=== PATIENT | female | born 1940 | race Caucasian/White ===

== ENCOUNTER 2016-03-30 17:10 | Inpatient (IN) | payer OTHER, BC ==
[~2016-03-30] VITALS: Ht 152.4 cm; Wt 110.4 kg
[~2016-03-30 17:10] MED LIST: ALBUTEROL SULF8.5 GM INH; HYDROCHLOROTHIA25 M1 PO; KEFLEX500 MG PO; KLOR-CON20 ME1 PO; LEVOXYL100 MCG PO; MULTI VITAMIN1 EACH PO; PEPCID20 MG PO; PREMARIN0.3 MG PO; ZYRTEC10 M2 PO
[2016-03-30 17:13] VITALS: BP 145/78
[2016-03-30 17:33] LABS: URINE BILIRUBIN NEGATIVE (Negative); URINE BLOOD TRACE (Negative); URINE COLOR YELLOW; URINE GLUCOSE-RANDOM* NEGATIVE (Negative); URINE KETONES 3+ (Negative); URINE LEUKOCYTES-REFLEX NEGATIVE (Negative); URINE PROTEIN (DIPSTICK) 2+ (Negative); URINE SPECIFIC GRAVITY 1.025 (1.003-1.035); URINE UROBILINOGEN 0.2 E.U./dl (0.2-1.0)
[2016-03-30] MEDS ORDERED: MAGOX 400400 MG PO (17:41)
[2016-03-30] MEDS ORDERED: NERVE MED (17:41)
[2016-03-30 17:43] LABS: CASTS None Seen /LPF (None Seen); CRYSTALS None Seen /LPF (None Seen); SQUAMOUS None Seen /LPF (0-3); URINE RBC 0-2 Rare /HPF (0-2); URINE WBC-REFLEX 0-5 Rare /HPF (0-5)
[2016-03-30 17:51] LABS: HEMATOCRIT 42.4 % (37.0-47.0); HEMOGLOBIN 14.5 gm/dL (12.0-15.0); MCH 30.2 pg (26.0-34.0); MCHC 34.2 % (28.0-37.0); MCV 88.1 fL (80.0-100.0); PLATELET COUNT 281 thou/uL (150-400); RBC 4.81 mil/uL (4.20-5.00); RDW 13.5 % (10.5-14.5); WBC 21.8 thou/uL (4.0-11.0)
[2016-03-30 17:54] LABS: MANUAL DIFF YES
[2016-03-30 17:58] LABS: POTASSIUM 3.4 mmol/L (3.5-5.1)
[2016-03-30 18:07] LABS: ABSOLUTE NEUTROPHILS 17.9 thou/uL (1.4-8.2); TOTAL CELL COUNT 100
[2016-03-30 18:24] LABS: ALBUMIN 3.8 g/dL (3.4-5.0); DIRECT BILIRUBIN 0.3 mg/dL (<0.1-0.3); TOTAL BILIRUBIN 1.5 mg/dL (<0.1-1.0); TOTAL PROTEIN 7.3 g/dL (6.4-8.2)
[2016-03-30 20:24] VITALS: BP 112/53; BP 116/59
[2016-03-30 21:30] VITALS: BP 130/58
[2016-03-30 23:25] VITALS: BP 103/56
[2016-03-31 04:55] VITALS: BP 105/57
[2016-03-31 05:44] LABS: HEMATOCRIT 38.4 % (37.0-47.0); HEMOGLOBIN 12.9 gm/dL (12.0-15.0); MCH 29.9 pg (26.0-34.0); MCHC 33.6 % (28.0-37.0); MCV 89.1 fL (80.0-100.0); RBC 4.31 mil/uL (4.20-5.00); RDW 13.7 % (10.5-14.5); WBC 17.9 thou/uL (4.0-11.0)
[2016-03-31 06:21] LABS: CALCIUM 8.3 mg/dL (8.5-10.1); CREATININE 1.1 mg/dL (0.6-1.3); TOTAL BILIRUBIN 1.3 mg/dL (<0.1-1.0); TOTAL PROTEIN 6.4 g/dL (6.4-8.2)
[2016-03-31 08:00] VITALS: BP 115/52
[2016-03-31 16:00] VITALS: BP 114/52
[2016-03-31 20:00] VITALS: BP 120/62
[2016-04-01 04:00] VITALS: BP 133/50
[2016-04-01 06:21] LABS: ABSOLUTE NEUTROPHILS 8.1 thou/uL (1.4-8.2); BASOPHILS 0.4 % (0.0-2.0); EOSINOPHILS 0.7 % (0.0-3.0); HEMATOCRIT 36.3 % (37.0-47.0); HEMOGLOBIN 12.3 gm/dL (12.0-15.0); LYMPHOCYTES 18.3 % (24.0-44.0); MCH 30.5 pg (26.0-34.0); MCHC 33.9 % (28.0-37.0); MONOCYTES 9.2 % (1.0-8.0); PLATELET COUNT 245 thou/uL (150-400); POLYS 71.4 % (36.0-66.0); RBC 4.04 mil/uL (4.20-5.00); RDW 13.4 % (10.5-14.5); WBC 11.4 thou/uL (4.0-11.0)
[2016-04-01 06:27] LABS: MANUAL DIFF NO
[2016-04-01 06:33] LABS: CALCIUM 8.3 mg/dL (8.5-10.1); CREATININE 1.1 mg/dL (0.6-1.3); POTASSIUM 3.8 mmol/L (3.5-5.1)
[2016-04-01 08:00] VITALS: BP 123/56
[2016-04-01 16:15] VITALS: BP 125/54
[2016-04-01 20:08] VITALS: BP 153/78
[2016-04-02 03:45] VITALS: BP 103/60
[2016-04-02 05:45] LABS: ABSOLUTE NEUTROPHILS 4.7 thou/uL (1.4-8.2); BASOPHILS 0.5 % (0.0-2.0); EOSINOPHILS 2.3 % (0.0-3.0); HEMATOCRIT 35.5 % (37.0-47.0); HEMOGLOBIN 11.7 gm/dL (12.0-15.0); LYMPHOCYTES 28.3 % (24.0-44.0); MCH 30.1 pg (26.0-34.0); MCHC 32.9 % (28.0-37.0); MCV 91.7 fL (80.0-100.0); MONOCYTES 11.1 % (1.0-8.0); PLATELET COUNT 248 thou/uL (150-400); POLYS 57.8 % (36.0-66.0); RBC 3.87 mil/uL (4.20-5.00); RDW 13.6 % (10.5-14.5); WBC 8.1 thou/uL (4.0-11.0)
[2016-04-02 05:49] LABS: MANUAL DIFF NO
[2016-04-02 06:05] LABS: CALCIUM 8.2 mg/dL (8.5-10.1); CREATININE 1.1 mg/dL (0.6-1.3); MAGNESIUM 2.1 mg/dL (1.8-2.4)
[2016-04-02 08:25] VITALS: BP 117/51
[2016-04-02 09:14] VITALS: BP 117/51
[2016-04-02] MEDS ORDERED: FLAGYL500 MG PO (12:39)
[2016-04-02] MEDS ORDERED: CIPRO500 M1 PO (12:39)
[2016-04-02] MEDS ORDERED: LEVOTHYROXIN0.125 M1 PO (12:41)
[2016-04-02 14:33] VITALS: BP 117/51
[2016-04-02] MEDS ORDERED: PERCOCET PO (14:46)
[2016-05-04] MEDS ORDERED: [UNRECOGNIZED DRUG - OTHER] PO (08:54)
== END 2016-04-02 15:19 | disposition home or self-care (01) | DRG 872 ==
LOC: ER 17:10 → 4N 19:37 → EROBS 19:37 → 4N 22:30
PROVIDERS: Emergency Medicine; Family Medicine; Internal Medicine; Nurse Practitioner; Physician Assistant
DX: A41.9 Sepsis, unspecified organism (principal); K57.92 Diverticulitis of intestine, part unspecified, without perforation or abscess without bleeding; E87.1 Hypo-osmolality and hyponatremia; J45.909 Unspecified asthma, uncomplicated; K21.9 Gastro-esophageal reflux disease without esophagitis; E03.9 Hypothyroidism, unspecified; E87.6 Hypokalemia; G25.81 Restless legs syndrome; G47.33 Obstructive sleep apnea (adult) (pediatric); E78.5 Hyperlipidemia, unspecified; I89.0 Lymphedema, not elsewhere classified; K59.00 Constipation, unspecified; K52.9 Noninfective gastroenteritis and colitis, unspecified; Z90.49 Acquired absence of other specified parts of digestive tract; Z90.710 Acquired absence of both cervix and uterus; Z98.890 Other specified postprocedural states; Z88.6 Allergy status to analgesic agent; Z88.8 Allergy status to other drugs, medicaments and biological substances; Z87.891 Personal history of nicotine dependence
CPT/HCPCS: 10091

== ENCOUNTER → 2019-10-26 | Outpatient (CLI) | payer OTHER, BC ==
[~2019-10-26] MED LIST changes: +CIPRO500 M1 PO; +FLAGYL500 MG PO; +LEVOTHYROXIN0.125 M1 PO; +MAGOX 400400 MG PO; +NERVE MED; +PERCOCET PO; +[UNRECOGNIZED DRUG - OTHER] PO
== END ==
LOC: LAB 13:43
PROVIDERS: ATTEND Anesthesiology
DX: Z01.812 Encounter for preprocedural laboratory examination (principal); Z11.59 Encounter for screening for other viral diseases